=== PATIENT | female | born 1960 | race Two or more races ===

== ENCOUNTER 2017-09-11 06:41 | Day surgery (SDC) | payer OTHER ==
[2017-09-11] VITALS (10 sets, daily range): BP systolic 111–155; BP diastolic 67–90
[~2017-09-11] VITALS: Ht 160 cm; Wt 156.5 kg
[2017-09-11] MEDS ORDERED: Dexamethasone 4mg/ml vial ONE (06:42)
[2017-09-11] MEDS ORDERED: LR 1000ml ONE (06:42)
[2017-09-11] MEDS ORDERED: fentaNYL 100 mcg/2 mL IV ONE (06:42)
[2017-09-11] MEDS ORDERED: Propofol 200mg/20ml IV ONE (06:42)
[2017-09-11] MEDS ORDERED: Metoclopramide 10mg/2ml Inj ONE (06:42)
[2017-09-11] MEDS ORDERED: Ketorolac 30mg Inj ONE (06:42)
[2017-09-11] MEDS ORDERED: Midazolam 2mg/2ml Inj ONE (06:42)
[2017-09-11] MEDS ORDERED: Bupivacaine 0.5% Inj 30 ml vial INJ ONE (07:01)
[2017-09-11] MEDS ORDERED: METFORMIN HCL500 M1 ORAL (07:06)
[2017-09-11] MEDS ORDERED: Lidocaine 1% Plain 30 ml INJ ONE (07:44)
[2017-09-11] MEDS ORDERED: NS Irrig 1000ml IRRIG ONE (07:45)
--- NOTE | 2017-09-11 07:57 | Pre-Procedure Note/Attestation ---
Pre-Procedure Note/Attestation Complete Prior to Procedure Planned Procedure: right Procedure Narrative: Right wrist carpal tunnel release Indications for Procedure Pre-Operative Diagnosis: Right wrist carpal tunnel syndrome; refractory to conservative management Attestation I attest that I discussed the nature of the procedure; its benefits; risks and complications; and alternatives (and the risks and benefits of such alternatives ), prior to the procedure, with the patient (or the patient's legal wholesale representative). I attest that, if there was a reasonable possibility of needing a blood transfusion, the patient (or the patient's legal wholesale representative) was given the [facility] standardized written summary, pursuant to the Homero Gary Blood Safety Act ([place] Health and Safety Code # 1645, as amended). I attest that I re-evaluated the patient just prior to the surgery and that there has been no change in the patient's H&P, except as documented below: Bryan Lorenzana MD Sep 11, 2017 07:57
--- NOTE | 2017-09-11 08:46 | Operative Note - PDOC ---
Operative Note Operative Note Date of Operation/Procedure: Sep 11, 2017 Chief Complaint: Right wrist pain with parasthesia in the median nerve distribution of hand Pre-op Diagnosis: Right wrist carpal tunnel syndrome; refractory to conservative management Procedure: Right carpal tunnel release Right wrist median nerve block Post-op Diagnosis: right wrist carpal tunnel syndrome Post-op Diagnosis: same as pre-op Surgeon: Raf Lorenzana M.D. [employer] Helper: None Anesthesia: MAC Specimen: none Complications: none Condition: stable Estimated Blood Loss: none Drains: none Tourniquet time: 27 Implant(s) used?: No Indications for Procedure See Dictated Full OP Note Description of Procedure See Dictated Full Op Note Bryan Lorenzana MD Sep 11, 2017 08:46
[2017-09-11] MEDS ORDERED: LR 1000ml 1,000 ML IVLG SCH (08:49)
--- NOTE | 2017-09-11 08:53 | Anethesia Preoperative Eval ---
Anesthesia Pre-op PMH/ROS General Date of Evaluation: Sep 11, 2017 Time of Evaluation: 07:30 Anesthesiologist: Jose ASA Score: ASA 2 Mallampati Score Class I : Soft palate, uvula, fauces, pillars visible Class II: Soft palate, uvula, fauces visible Class III: Soft palate, base of uvula visible Class IV: Only hard plate visible Mallampati Classification: Class II Surgeon: Salomón Diagnosis: Right Carpal Tunnel Surgical Procedure: Carpal Tunnel Release Anesthesia History: none Family History: no anesthesia problems Allergies: Coded Allergies: No Known Allergies (Unverified , 09/10/17) Medications: see eMAR Anesthesia Pre-op Phys. Exam Physician Exam Last Vital Signs Date Time Temp Pulse Resp B/P (MAP) Pulse Ox O2 Delivery O2 Flow Rate FiO2 09/11/17 07:08 97.7 86 20 120/67 98 Room Air Constitutional: NAD Neurologic: CN 2-12 intact Cardiovascular: RRR Respiratory: CTA Gastrointestinal: S/NT/ND Airway Exam Mallampati Score: Class II MO: full ROM: full Teeth: intact Anesthesia Pre-op A/P Risk Assessment & Plan Plan: MAC Status Change Before Surgery: No Pre-Antibiotics Drug: ANCEF Given Within 1 Hr of Incision: Yes Time Given: 08:00 Jerome Garcia M.D. Sep 11, 2017 08:53
--- NOTE | 2017-09-11 08:54 | Immediate Post-Op Evaluation ---
Immediate Post-Op Evalulation Immediate Post-Op Evalulation Procedure: right Carpal Tunnel Release Date of Evaluation: Sep 11, 2017 Time of Evaluation: 09:00 IV Fluids: 700 Blood Products: 0 Estimated Blood Loss: 0 Urinary Output: 0 Blood Pressure Systolic: 127 Blood Pressure Diastolic: 90 Pulse Rate: 78 Respiratory Rate: 18 O2 Sat by Pulse Oximetry: 99 Temperature (Fahrenheit): 98.1 Pain Score (1-10): 0 Nausea: No Vomiting: No Patient Status: awake, reacts, patent Drug: Ancef Given Within 1 Hr of Incision: Yes Time Given: 08:00 Jerome Garcia M.D. Sep 11, 2017 08:54
[2017-09-11] MEDS ORDERED: Tylenol #3 tab (300mg/30mg) ORAL PRN (09:00)
[2017-09-11] MEDS ORDERED: Midazolam 2mg/2ml Inj IVP PRN (09:00)
[2017-09-11] MEDS ORDERED: fentaNYL 100 mcg/2 mL IV PRN (09:00)
[2017-09-11] MEDS ORDERED: D5 1/2NS 1,000 ML IV SCH (09:00)
[2017-09-11] MEDS ORDERED: Ketorolac 30mg Inj IV PRN (09:00)
[2017-09-11] MEDS ORDERED: Norco 5mg/325mg tab ORAL PRN (09:00)
[2017-09-11] MEDS ORDERED: HYDROmorphone 1mg/ml Carpuject SUBQ PRN (09:00)
--- NOTE | 2017-09-12 16:15 | Operative Note - Dictated ---
DATE OF OPERATION: 09/11/2017 NOTE: POOR AUDIO QUALITY PREOPERATIVE DIAGNOSIS: Right wrist carpal tunnel syndrome. POSTOPERATIVE DIAGNOSIS: Right wrist carpal tunnel syndrome. PROCEDURES: 1. Right wrist median nerve block. 2. Right wrist carpal tunnel release. SURGEON: Bryan Lorenzana M.D. BIOMETRICS ANALYST: None. ANESTHESIA: MAC. BLOOD LOSS: None. DRAINS: None. COMPLICATIONS: None. INDICATION FOR PROCEDURE: The patient is a 56-year-old female with mild carpal tunnel syndrome. She failed conservative treatments. study and tests confirmed diagnosis and the patient would benefit from carpal tunnel release. Risks, benefits, and alternatives of the surgery were discussed with the patient. The risks including, but not limited to infection, nerve damage, weakness, continued pain, , swelling, deformity, infection, need further treatment, etc. were reviewed. The patient understood the risks and wished to proceed. DESCRIPTION OF PROCEDURE: The patient was identified by herself in the preoperative area. The right upper extremity was marked . The patient was then taken to the operating room, placed in supine position under adequate anesthesia. Next, right upper extremity was prepped and draped in the usual sterile fashion and a tourniquet was placed high in the right upper extremity. Next, median nerve block was then performed. Next, the patient received Ancef 2 g prior to skin incision. A time-out was performed and confirmed the right upper extremity was the correct operative site. Next, a longitudinal incision was made. This was carried to the transverse wrist crease between the thenar and hypothenar eminence. This was taken down through subcutaneous tissue. Hemostasis was achieved. was identified. Next, when we completed the revision, ligament was released completely both proximally and distally as well as the palmar fascia. This was then checked both proximally and distally. . After satisfactory release, the wound was thoroughly irrigated. Hemostasis achieved and then wound closed using 4-0 nylon. Dry sterile dressing proximal volar splint. Tourniquet was used. Tourniquet time approximately 27 minutes. There were no complications. The patient was PACU. Bryan Lorenzana M.D. DR: GIA JOB#: [id number] CC:
== END 2017-09-11 10:40 | disposition home or self-care (01) ==
LOC: SUR 06:41
DX: G56.01 Carpal tunnel syndrome, right upper limb (principal)
CPT/HCPCS: 64450; 64721; 82962; J0690; J1100; J1885; J2001; J2250; J2405; J2704; J2765; J3010; J7120; 94003; 94150